=== PATIENT | male | born 1930 | race Caucasian/White ===

== ENCOUNTER 2017-01-02 20:10 | Emergency (ER) | payer MEDICARE, OTHER ==
[2017-01-02 20:07] LABS: BASOPHILS 0.2 %; BASOPHILS ABSOLUTE 0.02 10/3/uL (0.0-0.16); EOSINOPHILS 0.9 %; ER CBC TAT 0 Hrs 08 Mins; HEMATOCRIT 32.8 % (40.0-51.0); HEMOGLOBIN 11.1 g/dL (13.6-17.8); IMMATURE GRANULOCYTES 0.3 %; IMMATURE GRANULOCYTES ABSOLUTE 0.03 10/3/uL (0.0-0.11); LYMPHOCYTES 19.9 %; LYMPHOCYTES ABSOLUTE 2.21 10/3/uL (0.67-4.30); MEAN CORPUS HGB CONC 33.8 g/dL (32.0-36.0); MEAN CORPUSCULAR HEMOGLOB 30.5 pg (26.0-34.0); MEAN CORPUSCULAR VOLUME 90.1 fL (80-100); MEAN PLATELET VOLUME 10.3 fL (9.2-13.0); MONOCYTES 8.8 %; MONOCYTES ABSOLUTE 0.98 10/3/uL (0.21-1.20); NEUTROPHILS 69.9 %; NEUTROPHILS ABSOLUTE 7.75 10/3/uL (2.02-8.40); PLATELET COUNT 165 10/3/uL (150-400); RBC DISTRIBUTION WIDTH 14.7 % (12.0-16.0); RED CELL COUNT 3.64 10/6/uL (4.7-6.1); WHITE BLOOD CELLS 11.1 10/3/uL (4.5-10.5)
[2017-01-02 20:08] LABS: MANUAL DIFF NO %
[~2017-01-02 20:10] MED LIST: ADVAIR250 INH; ALB4 PO; AMOXIL500 MG PO; ASAB PO; ASCRIPTIN PO; CARDU4 PO; DYRENIUM100 MG PO; FLOMAX4 PO; HALF81 PO; LEVAQUIN5T PO; LIPITOR10 PO; MAX25 PO; MOBIC7.5 PO; NEXIUM40 PO; NORV5 PO; OCEAN NAS; PRIN20 PO; PROVENTSOL INH; RAPAFLO8 MG PO; REFRESH OP; SPIRIVA INH; VALTREX1 GM PO; VENTOLIN HFA INH; Z300 PO; ZESTRIL20 MG PO; ZOCOR40 PO; [UNRECOGNIZED DRUG - OTHER] PO
[2017-01-02 20:15] LABS: INTERNATIONAL NORMAL RATI 1.2 UNITS (-); PARTIAL THROMBO TIME 36.3 SEC (22.5-37.2); PROTIME (NOT ORD) 14.6 SEC (12.0-14.5)
[2017-01-02 20:27] LABS: BUN (BLOOD UREA NITROGEN) 27 MG/DL (6-23); CALCIUM, SERUM 8.6 MG/DL (8.5-10.4); CHEST PAIN PROFILE TAT 0 Hrs 28 Mins; CHLORIDE, SERUM 108 MMOL/L (96-112); CO2 (CARBON DIOXIDE) 23 MMOL/L (24-34); CREATININE 1.24 MG/DL (0.70-1.30); GFR AFRICAN AMERICAN 61 ML/MIN (>=60); GFR NON AFRICAN AMERICAN 53 ML/MIN (>=60); GLUCOSE, SERUM 104 MG/DL (60-99); POTASSIUM, SERUM 4.4 MMOL/L (3.5-5.3); SODIUM, SERUM 142 MMOL/L (135-148); TROPONIN I <0.02 NG/ML (<0.05)
[2017-06-01] MEDS ORDERED: Z300 PO (22:20)
[2017-06-01] MEDS ORDERED: Spiriva Handihaler (22:20)
[2017-06-01] MEDS ORDERED: NEXIUM40 PO (22:20)
[2017-06-01] MEDS ORDERED: NORV5 PO (22:20)
[2017-06-01] MEDS ORDERED: ADVAIR250 INH (22:21)
[2017-06-01] MEDS ORDERED: ALBUTEROL0.083 % INH (22:22)
[2017-06-01] MEDS ORDERED: MAX25 PO (22:22)
[2017-06-01] MEDS ORDERED: RAPAFLO8 MG PO (22:23)
[2017-06-01] MEDS ORDERED: ZESTRIL20 MG PO (22:23)
[2017-06-01] MEDS ORDERED: LIPITOR10 PO (22:23)
[2017-06-01] MEDS ORDERED: ASAB PO (22:23)
[2017-06-01] MEDS ORDERED: SINGULAIR1 PO (22:24)
[2017-06-01] MEDS ORDERED: OCEAN NAS (22:25)
[2017-06-01] MEDS ORDERED: TEARS PURE (22:25)
== END 2017-01-02 22:29 | disposition home or self-care (01) ==
LOC: ER 20:10
PROVIDERS: Emergency Medicine
DX: R09.1 Pleurisy (principal); I10 Essential (primary) hypertension; J44.9 Chronic obstructive pulmonary disease, unspecified; Z88.1 Allergy status to other antibiotic agents; Z79.82 Long term (current) use of aspirin; Z79.899 Other long term (current) drug therapy
CPT/HCPCS: 71020; 80048; 83735; 84484; 85025; 85610; 85730; 93005; 96374; 96375; 99285; J2405; J2920

== ENCOUNTER 2017-01-15 11:28 | Emergency (ER) | payer MEDICARE, OTHER ==
[2017-01-15 11:16] LABS: BASOPHILS 0.1 %; BASOPHILS ABSOLUTE 0.01 10/3/uL (0.0-0.16); EOSINOPHILS 0.2 %; EOSINOPHILS ABSOLUTE 0.04 10/3/uL (0.0-0.53); HEMATOCRIT 30.7 % (40.0-51.0); HEMOGLOBIN 10.3 g/dL (13.6-17.8); IMMATURE GRANULOCYTES 0.4 %; IMMATURE GRANULOCYTES ABSOLUTE 0.08 10/3/uL (0.0-0.11); LYMPHOCYTES 6.1 %; MEAN CORPUS HGB CONC 33.6 g/dL (32.0-36.0); MEAN CORPUSCULAR HEMOGLOB 30.4 pg (26.0-34.0); MEAN CORPUSCULAR VOLUME 90.6 fL (80-100); MEAN PLATELET VOLUME 9.9 fL (9.2-13.0); MONOCYTES 7.5 %; MONOCYTES ABSOLUTE 1.35 10/3/uL (0.21-1.20); NEUTROPHILS 85.7 %; NEUTROPHILS ABSOLUTE 15.54 10/3/uL (2.02-8.40); PLATELET COUNT 156 10/3/uL (150-400); RBC DISTRIBUTION WIDTH 14.3 % (12.0-16.0); RED CELL COUNT 3.39 10/6/uL (4.7-6.1)
[2017-01-15 11:18] LABS: ER CBC TAT 0 Hrs 07 Mins; MANUAL DIFF NO %; WHITE BLOOD CELLS 18.1 10/3/uL (4.5-10.5)
[2017-01-15 11:25] LABS: INTERNATIONAL NORMAL RATI 1.2 UNITS (-); PARTIAL THROMBO TIME 34.6 SEC (22.5-37.2); PROTIME (NOT ORD) 14.8 SEC (12.0-14.5)
[2017-01-15 11:33] LABS: BUN (BLOOD UREA NITROGEN) 24 MG/DL (6-23); CALCIUM, SERUM 8.7 MG/DL (8.5-10.4); CHEST PAIN PROFILE TAT 0 Hrs 22 Mins; CHLORIDE, SERUM 109 MMOL/L (96-112); CREATININE 1.27 MG/DL (0.70-1.30); GFR AFRICAN AMERICAN 60 ML/MIN (>=60); GFR NON AFRICAN AMERICAN 52 ML/MIN (>=60); GLUCOSE, SERUM 98 MG/DL (60-99); SODIUM, SERUM 142 MMOL/L (135-148); TROPONIN I <0.02 NG/ML (<0.05)
[2017-01-15 11:34] LABS: CO2 (CARBON DIOXIDE) 28 MMOL/L (24-34); POTASSIUM, SERUM 5.3 MMOL/L (3.5-5.3)
[2017-06-01] MEDS ORDERED: NEXIUM40 PO (22:20)
[2017-06-01] MEDS ORDERED: Z300 PO (22:20)
[2017-06-01] MEDS ORDERED: Spiriva Handihaler (22:20)
[2017-06-01] MEDS ORDERED: NORV5 PO (22:20)
[2017-06-01] MEDS ORDERED: ADVAIR250 INH (22:21)
[2017-06-01] MEDS ORDERED: MAX25 PO (22:22)
[2017-06-01] MEDS ORDERED: ALBUTEROL0.083 % INH (22:22)
[2017-06-01] MEDS ORDERED: LIPITOR10 PO (22:23)
[2017-06-01] MEDS ORDERED: RAPAFLO8 MG PO (22:23)
[2017-06-01] MEDS ORDERED: ASAB PO (22:23)
[2017-06-01] MEDS ORDERED: ZESTRIL20 MG PO (22:23)
[2017-06-01] MEDS ORDERED: SINGULAIR1 PO (22:24)
[2017-06-01] MEDS ORDERED: OCEAN NAS (22:25)
[2017-06-01] MEDS ORDERED: TEARS PURE (22:25)
== END 2017-01-15 14:44 | disposition home or self-care (01) ==
LOC: ER 11:28
PROVIDERS: Emergency Medicine
DX: J45.909 Unspecified asthma, uncomplicated (principal); D72.829 Elevated white blood cell count, unspecified; R06.00 Dyspnea, unspecified; J44.9 Chronic obstructive pulmonary disease, unspecified; I10 Essential (primary) hypertension; K21.9 Gastro-esophageal reflux disease without esophagitis; Z87.891 Personal history of nicotine dependence; Z88.1 Allergy status to other antibiotic agents; Z79.899 Other long term (current) drug therapy; Z79.82 Long term (current) use of aspirin
CPT/HCPCS: 71020; 80048; 83735; 83880; 84484; 85025; 85610; 85730; 93005; 94640; 96374; 96375; 99285; A9270-GY; J2930